=== PATIENT | female | born 1960 | race Caucasian/White ===

== ENCOUNTER 2018-09-17 18:32 | Emergency (ER) | payer MEDICAID, OTHER ==
[2018-09-17 18:33] VITALS: BMI 24.6
[2018-09-17 18:40] VITALS: RESP 18; TEMP 98
--- NOTE | 2018-09-17 19:23 | ED PDOC ---
Arrival/HPI - General Chief Complaint: Trauma Time Seen by Provider: 09/17/18 18:57 Historian: Patient - History of Present Illness Narrative History of Present Illness (Text): 58 y/o female with PMH of HTN, DM presents to the ED c/o right arm pain s/p mechanical fall this evening. Pt tripped and fell this evening at a friends house, landing on her right arm. Denies head strike or LOC. Pt not on blood thinners. Sustained two small abrasions to right knee. Complaining of pain to entirety of right arm but worse in the shoulder and elbow. Has not taken any medication for pain. Unknown last tetanus. Denies neck pain, back pain, numbness, weakness, parethesias, or any other associated symptoms. Past Medical History - Provider Review Nursing Documentation Reviewed: Yes - Infectious Disease Hx of Infectious Diseases: None - Cardiac Hx Cardiac Disorders: Yes Hx Hypertension: Yes - Pulmonary Hx Respiratory Disorders: Yes Hx Pneumonia: Yes - Neurological Hx Neurological Disorder: Yes (NEUROPATHY) - HEENT Hx HEENT Disorder: Yes (BILATERAL EAR PROBLEM) - Renal Hx Renal Disorder: No - Endocrine/Metabolic Hx Endocrine Disorders: Yes Hx Diabetes Mellitus Type 2: Yes - Hematological/Oncological Hx Blood Disorders: No - Integumentary Hx Dermatological Disorder: No - Musculoskeletal/Rheumatological Hx Musculoskeletal Disorders: No Hx Falls: No - Gastrointestinal Hx Gastrointestinal Disorders: Yes Hx Gastroesophageal Reflux: Yes - Genitourinary/Gynecological Hx Genitourinary Disorders: No - Psychiatric Hx Psychophysiologic Disorder: No Hx Substance Use: No - Surgical History Hx Section: Yes - Anesthesia Hx Anesthesia: Yes Hx Anesthesia Reactions: No Family/Social History - Physician Review Nursing Documentation Reviewed: Yes Family/Social History: No Known Family HX Smoking Status: Never Smoked Hx Alcohol Use: No Hx Substance Use: No Allergies/Home Meds Allergies/Adverse Reactions: Allergies No Known Allergies Allergy (Verified 09/18/18 20:13) Home Medications: Home Meds Medication Instructions Recorded Confirmed Glyburide/Metformin HCl 1 tab PO BID 11/04/15 12/12/15 [Glucovance 5-500 mg Tablet] Insulin Aspart [Novolog] 6 unit SQ TID 11/04/15 12/12/15 Insulin Detemir [Levemir] 50 unit SC ACB 11/04/15 12/12/15 Gabapentin [Neurontin] 300 mg PO TID 12/12/15 12/12/15 Levothyroxine [Synthroid] 50 mcg PO DAILY 12/12/15 12/12/15 Review of Systems - Review of Systems Constitutional: Normal. absent: Fevers Eyes: Normal. absent: Vision Changes Respiratory: Normal. absent: SOB, Cough Cardiovascular: Normal. absent: Chest Pain, Palpitations Gastrointestinal: Normal. absent: Abdominal Pain, Nausea, Vomiting Musculoskeletal: Other (right arm pain) Skin: Other (abrasion right knee). absent: Rash, Laceration Neurological: Normal. absent: Headache, Dizziness Physical Exam Vital Signs Reviewed: Yes Vital Signs Temp Pulse Resp BP Pulse Ox 09/17/18 18:38 98 F 81 18 147/84 98 Temperature: Afebrile Blood Pressure: Normal Pulse: Regular Respiratory Rate: Normal Appearance: Positive for: Well-Appearing, Non-Toxic, Comfortable Pain Distress: None Mental Status: Positive for: Alert and Oriented X 3 - Systems Exam Head: Present: Atraumatic, Normocephalic Pupils: Present: PERRL Extroacular Muscles: Present: EOMI Conjunctiva: Present: Normal Mouth: Present: Moist Mucous Membranes Neck: Present: Normal Range of Motion. No: MIDLINE TENDERNESS, Paraspinal Tenderness Respiratory/Chest: Present: Clear to Auscultation, Good Air Exchange. No: Respiratory Distress, Accessory Muscle Use Cardiovascular: Present: Regular Rate and Rhythm, Normal S1, S2, Peripheal Pulses Present Abdomen: No: Tenderness Back: Present: Normal Inspection. No: CVA Tenderness, Midline Tenderness, Paraspinal Tenderness Upper Extremity: Present: NORMAL PULSES, Tenderness (right lateral and anterior shoulder; right posterior elbow), Neurovascularly Intact, Capillary Refill < 2s. No: Normal ROM (decreased at right shoulder), Swelling, Erythema, Temperature Abnormalties, Deformity Lower Extremity: Present: NORMAL PULSES, Normal ROM, Tenderness (mild over right patella), Neurovascularly Intact, Capillary Refill < 2 s, Other (2 small superficial abrasions over right knee). No: Swelling, Temperature Abnormalties Neurological: Present: GCS=15, CN II-XII Intact, Speech Normal, Motor Func Grossly Intact, Normal Sensory Function, Gait Normal Skin: Present: Warm, Dry, Normal Color. No: Rashes Psychiatric: Present: Alert, Oriented x 3, Normal Insight, Normal Concentration, Normal Affect, Normal Mood Medical Decision Making ED Course and Treatment: 09/17/18 19:24 Initial Plan: * XR Right Shoulder * XR Right Elbow * XR Right Hand * XR Right Forearm * Tylenol * Tetanus * Wound Care Xrays reviewed by ED attending Dr. Bruno. Read as negative for fracture by Dr. Bruno, advises right arm sling. Pt reports improvement in pain with medication. Advised orthopedic followup. Diagnostic testing results and plan of care discussed with patient. Strict instructions given regarding prescription use, importance of followup, and signs/symptoms to return to ER including worsening pain, numbness, weakness, paresthesias, or any other new/worsening symptoms. Pt verbalized understanding o f discussion. Patient is A&Ox3, ambulating with steady gait, with vital signs stable for discharge. Disposition/Present on Arrival - Present on Arrival Any Indicators Present on Arrival: No History of DVT/PE: No History of Uncontrolled Diabetes: No Urinary Catheter: No History of Decub. Ulcer: No History Surgical Site Infection Following: None - Disposition Have Diagnosis and Disposition been Completed?: Yes Diagnosis: Fall, Right arm pain Disposition: HOME/ ROUTINE Disposition Time: 20:30 Condition: IMPROVED Discharge Instructions (ExitCare): Shoulder Sprain Additional Instructions: Rest, no strenuous activity Keep arm in sling until orthopedic followup Ibuprofen every 8 hours as needed for pain Followup with orthopedic doctor within 2 days Followup with primary doctor within 2 days Return to ER with any new/worsening symptoms Prescriptions: Ibuprofen [Motrin Tab] 600 mg PO Q8 PRN #30 tab PRN Reason: Pain, Moderate (4-7) Referrals: Stacy Lynn MD [Primary Care Provider] - Follow up with primary Russell Jarquin MD [Staff Provider] - Follow up with primary Forms: [employer] (Chinese), WORK NOTE
[2018-09-17] MEDS ORDERED: TDAP Vaccine 0.5 mL Syr IM ONE (19:25)
[2018-09-17] MEDS ORDERED: Bacitracin 500 Units/gm Oint Foilpak UD ONE (20:41)
[2018-09-17 21:11] VITALS: O2SAT 99
[2018-09-17 21:27] VITALS: BP 124/59; PULSE 87
--- NOTE | 2018-09-18 14:29 | RAD ---
Date of service: 09/17/2018 PROCEDURE: Radiographs of the Right Shoulder HISTORY: trauma this pm, pain COMPARISON: No prior. TECHNIQUE: 3 views obtained. FINDINGS: BONES: Normal. No fracture. 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 SOFT TISSUES: Normal. OTHER FINDINGS: None. IMPRESSION: No evidence of acute displaced fracture nor dislocation. . Mild degenerative osteoarthritis as above
--- NOTE | 2018-09-18 14:36 | RAD ---
Date of service: 09/17/2018 PROCEDURE: Radiographs of the right elbow. HISTORY: trauma this pm, pain COMPARISON: No prior. TECHNIQUE: 3 views obtained. FINDINGS: BONES: Normal. No fracture. There is a tiny enthesophyte seen arising from the olecranon JOINTS: Normal. No osteoarthritis. SOFT TISSUES: Normal. JOINT EFFUSION: None. OTHER FINDINGS: None. IMPRESSION: No definitive evidence of acute displaced fracture nor dislocation. If symptoms persist or occult fracture suspected clinically consider repeat radiographs in 7-10 days as most fractures should become radiographically evident in
--- NOTE | 2018-09-18 14:42 | RAD ---
PROCEDURE: Right Hand Radiographs. HISTORY: trauma this pm, pain COMPARISON: Correlation made with concurrent radiographs of the right forearm. TECHNIQUE: 3 views obtained. FINDINGS: BONES: No evidence of acute displaced fracture nor dislocation. Previously seen small somewhat punched-out appearing changes along the cortex radial aspect of the navicular seen on form radiographs not appreciated on this study. JOINTS: Normal. No osteoarthritic changes. SOFT TISSUES: Normal. OTHER FINDINGS: None. IMPRESSION: No evidence of acute displaced fracture nor dislocation.
--- NOTE | 2018-09-18 14:43 | RAD ---
PROCEDURE: Radiographs of the Right Forearm HISTORY: trauma this pm, pain COMPARISON: None available. TECHNIQUE: Frontal and lateral views obtained. 2 views obtained. FINDINGS: BONES: No evidence of acute displaced fracture nor dislocation. There are small somewhat punched-out appearing changes along the cortex radial aspect of the navicular of uncertain etiology.. JOINT SPACES: Unremarkable. OTHER FINDINGS: None. IMPRESSION: Unremarkable radiographs of the right forearm.
--- NOTE | 2018-09-18 17:43 | RAD ---
Date of service: 09/17/2018 PROCEDURE: Right Knee Radiographs. HISTORY: trauma this pm, pain COMPARISON: None. TECHNIQUE: 2 views obtained. FINDINGS: BONES: There is a small cortical irregularity along the medial aspect of the tibial plateau that may represent junction of the fused growth plate however the possibility of a step-off related to fracture cannot be completely excluded. Recommend repeat radiographs to include oblique views further evaluation.. Alternatively,, CT scan could be obtained JOINTS: Mild osteoarthritis most notably affecting the patellofemoral compartment. Medial and lateral compartment joint spaces are preserved JOINT EFFUSION: Tiny suprapatellar joint effusion. OTHER FINDINGS: None. IMPRESSION: There is a small cortical irregularity along the medial aspect of the tibial plateau that may represent junction of the fused growth plate however the possibility of a step-off related to fracture cannot be completely excluded. Recommend repeat radiographs to include oblique views further evaluation. Alternately, CT scan could be obtained Mild degenerative osteoarthritis as detailed above. Tiny suprapatellar joint effusion. Note that this report was placed in PA review folder for follow up.
== END 2018-09-17 21:25 | disposition home or self-care (01) ==
LOC: ED 18:32
DX: M79.601 Pain in right arm (principal); I10 Essential (primary) hypertension; E11.9 Type 2 diabetes mellitus without complications; Z23 Encounter for immunization

== ENCOUNTER 2018-09-18 20:06 | Emergency (ER) | payer MEDICAID ==
[2018-09-18 20:08] VITALS: BMI 24.6
[2018-09-18 20:27] VITALS: RESP 16; TEMP 98
--- NOTE | 2018-09-18 20:27 | ED PDOC ---
Arrival/HPI - General Time Seen by Provider: 09/18/18 20:08 Historian: Patient - History of Present Illness Narrative History of Present Illness (Text): 58 y/o female with PMH of HTN, DM presents to the ED called back for CT scan of the right lower extremity after the official read from her XR last night showed concern for fracture of medial proximal tibia. Pt was seen in ED last night s/p fall for evaluation of right arm and right knee pain. Discharged home after prelim reads of XR were negative for acute pathology. Pt able to ambulate without difficulty. Denies numbness, weakness, paresthesias, or any other associated complaints. Past Medical History - Provider Review Nursing Documentation Reviewed: Yes - Infectious Disease Hx of Infectious Diseases: None - Cardiac Hx Cardiac Disorders: Yes Hx Hypertension: Yes - Pulmonary Hx Respiratory Disorders: Yes Hx Pneumonia: Yes - Neurological Hx Neurological Disorder: Yes (NEUROPATHY) - HEENT Hx HEENT Disorder: Yes (BILATERAL EAR PROBLEM) - Renal Hx Renal Disorder: No - Endocrine/Metabolic Hx Endocrine Disorders: Yes Hx Diabetes Mellitus Type 2: Yes - Hematological/Oncological Hx Blood Disorders: No - Integumentary Hx Dermatological Disorder: No - Musculoskeletal/Rheumatological Hx Musculoskeletal Disorders: No Hx Falls: No - Gastrointestinal Hx Gastrointestinal Disorders: Yes Hx Gastroesophageal Reflux: Yes - Genitourinary/Gynecological Hx Genitourinary Disorders: No - Psychiatric Hx Psychophysiologic Disorder: No Hx Substance Use: No - Surgical History Hx Section: Yes - Anesthesia Hx Anesthesia: Yes Hx Anesthesia Reactions: No Family/Social History - Physician Review Nursing Documentation Reviewed: Yes Family/Social History: No Known Family HX Smoking Status: Never Smoked Hx Alcohol Use: No Hx Substance Use: No Allergies/Home Meds Allergies/Adverse Reactions: Allergies No Known Allergies Allergy (Verified 09/18/18 20:13) Home Medications: Home Meds Medication Instructions Recorded Confirmed Glyburide/Metformin HCl 1 tab PO BID 11/04/15 12/12/15 [Glucovance 5-500 mg Tablet] Insulin Aspart [Novolog] 6 unit SQ TID 11/04/15 12/12/15 Insulin Detemir [Levemir] 50 unit SC ACB 11/04/15 12/12/15 Gabapentin [Neurontin] 300 mg PO TID 12/12/15 12/12/15 Levothyroxine [Synthroid] 50 mcg PO DAILY 12/12/15 12/12/15 Review of Systems - Review of Systems Respiratory: Normal. absent: SOB, Cough Cardiovascular: Normal. absent: Chest Pain, Palpitations Gastrointestinal: Normal. absent: Abdominal Pain, Nausea, Vomiting Musculoskeletal: Other (right shoulder pain, right elbow pain, right knee pain). absent: Back Pain, Neck Pain Neurological: Normal. absent: Headache, Dizziness, Other (no numbness, paresthesias) Physical Exam Vital Signs Reviewed: Yes Vital Signs Temp Pulse Resp BP Pulse Ox 09/18/18 20:15 98 F 70 16 127/75 97 Temperature: Afebrile Blood Pressure: Normal Pulse: Regular Respiratory Rate: Normal Appearance: Positive for: Well-Appearing, Non-Toxic, Comfortable Pain Distress: None Mental Status: Positive for: Alert and Oriented X 3 - Systems Exam Head: Present: Atraumatic, Normocephalic Pupils: Present: PERRL Extroacular Muscles: Present: EOMI Conjunctiva: Present: Normal Mouth: Present: Moist Mucous Membranes Neck: Present: Normal Range of Motion Respiratory/Chest: Present: Clear to Auscultation, Good Air Exchange. No: Respiratory Distress, Accessory Muscle Use Cardiovascular: Present: Regular Rate and Rhythm, Normal S1, S2 Back: Present: Normal Inspection Upper Extremity: Present: NORMAL PULSES, Tenderness (lateral right shoulder, posterior right elbow, right 5th MCP joint), Swelling (right hand 5th mcp joint), Neurovascularly Intact, Capillary Refill < 2s. No: Normal ROM (decreased at right shoulder secondary to pain), Erythema, Temperature Abnormalties Lower Extremity: Present: Normal Inspection, NORMAL PULSES, Normal ROM, Neurova scularly Intact, Capillary Refill < 2 s, Other (2 small well-healing abrasions to right anterior knee without signs of surrounding infection; no streaking; no active bleeding; no fluctuance). No: CALF TENDERNESS, Tenderness, Temperature Abnormalties Neurological: Present: GCS=15, CN II-XII Intact, Speech Normal, Motor Func Grossly Intact, Normal Sensory Function, Gait Normal Skin: Present: Warm, Dry, Normal Color. No: Rashes Psychiatric: Present: Alert, Oriented x 3, Normal Insight, Normal Concentration, Normal Affect, Normal Mood Medical Decision Making ED Course and Treatment: Initial Plan: * CT right lower extremity CT negative for acute pathology. Advised orthopedic followup. Encounter translated by at patient's request. Diagnostic testing results and plan of care discussed with patient. Strict instructions given regarding importance of followup, and signs/symptoms to return to ER including numbness, paresthesias, worsening pain, or any other new/worsening symptoms. Pt verbalized understanding of discussion. Patient is A&Ox3, ambulating with steady gait, with vital signs stable for discharge. - RAD Interpretation Narrative RAD Interpretations (Text): 09/18/18 22:[address]: FINDINGS: BONES: No acute fracture or aggressive appearing osseous lesion. JOINTS: No dislocation. The joint spaces are normal. SOFT TISSUES: The soft tissues are unremarkable. IMPRESSION: No acute osseous abnormality. Electronically signed on Sep 18, 2018 10:07:55 PM EDT by: Chitra Abel M.D., Certified by [facility], Diagnostic Radiology Radiology Orders: 09/18/18 20:16 EXT LOWER W/O CONTRAST RIGHT [CT] Stat Enrober Tender: Radiologist Disposition/Present on Arrival - Present on Arrival Any Indicators Present on Arrival: No History of DVT/PE: No History of Uncontrolled Diabetes: No Urinary Catheter: No History Surgical Site Infection Following: None - Disposition Have Diagnosis and Disposition been Completed?: Yes Diagnosis: Knee pain Disposition: HOME/ ROUTINE Disposition Time: 21:45 Patient Plan: Discharge Condition: IMPROVED Discharge Instructions (ExitCare): Knee Pain Additional Instructions: Followup with orthopedic doctor within 2 days Return to ER with any new/worsening symptoms Referrals: Russell Jarquin MD [Staff Provider] - Follow up with primary Forms: [employer] (Amharic), WORK NOTE
[2018-09-18 22:40] VITALS: BP 126/72; PULSE 72; O2SAT 98
--- NOTE | 2018-09-19 10:02 | CT ---
Date of service: 09/18/2018 PROCEDURE: HISTORY: abnormal knee XR, r/o fx medial proximal tibia COMPARISON: TECHNIQUE: FINDINGS: No acute fracture dislocation is observed. Patellofemoral osteoarthritis is observed. There is no joint effusion. No soft tissue abnormalities identified. IMPRESSION: No acute fracture.
== END 2018-09-18 22:15 | disposition home or self-care (01) ==
LOC: ED 20:06
DX: M25.561 Pain in right knee (principal); I10 Essential (primary) hypertension